=== PATIENT | male | born 1990 | race Caucasian/White ===

== ENCOUNTER 2018-08-04 11:05 | Inpatient (IN) | payer OTHER ==
[~2018-08-04] VITALS: Ht 182.9 cm; Wt 103.0 kg
[2018-08-04 11:42] VITALS: Ht 182.9 cm; Wt 103.0 kg
[2018-08-04 12:44] LABS: BASOPHIL % 0.3 % (0-2); PLATELET COUNT 339 x10^3mcL (130-400); RED CELL DISTRIBUTION WIDTH 12.9 % (11.5-14.5)
[2018-08-04 12:52] LABS: microscopic required? NO
[2018-08-04 12:57] LABS: UA SPECIFIC GRAVITY 1.025 (1.005-1.035); urine erythrocyte NEGATIVE (NEGATIVE)
[2018-08-04 13:13] LABS: CARBON DIOXIDE 30.9 mmol/L (21-32); CHLORIDE SERUM 98 mmol/L (98-107); CREATININE SERUM 0.9 mg/dL (0.7-1.3); GFR1 > 60 mL/min; GLUCOSE SERUM 109 mg/dL (74-106); POTASSIUM SERUM 3.7 mmol/L (3.5-5.1); SODIUM SERUM 137 mmol/L (136-145)
[2018-08-04 13:18] LABS: ALBUMIN 3.6 g/dL (3.4-5.0); ALKALINE PHOSPHATASE 83 U/L (46-116); ALT/SGPT 20 U/L (16-63); AST/SGOT 12 U/L (15-37)
[2018-08-04 13:19] LABS: TOTAL PROTEIN, SERUM 9.3 g/dL (6.4-8.2)
[2018-08-04 16:04] VITALS: BP 119/71
[2018-08-04 16:26] LABS: PHOSPHOROUS 4.1 mg/dL (2.5-4.9)
[2018-08-04 16:27] LABS: CHOLESTEROL/HDL RATIO 2.4
[2018-08-04 18:20] VITALS: BP 130/73
[2018-08-04 21:43] LABS: AMPHETAMINE QUAL UR NONE DETECTED (See below)
[2018-08-05 05:20] VITALS: BP 119/57
[2018-08-05 06:38] LABS: BASOPHIL % 0.1 % (0-2); PLATELET COUNT 277 x10^3mcL (130-400); RED CELL DISTRIBUTION WIDTH 13.8 % (11.5-14.5)
[2018-08-05 07:09] LABS: CALCIUM 8.8 mg/dL (8.5-10.1); CARBON DIOXIDE 28.6 mmol/L (21-32); CHLORIDE SERUM 100 mmol/L (98-107); CREATININE SERUM 0.8 mg/dL (0.7-1.3); GFR1 > 60 mL/min; GLUCOSE SERUM 107 mg/dL (74-106); POTASSIUM SERUM 3.7 mmol/L (3.5-5.1); SODIUM SERUM 136 mmol/L (136-145)
[2018-08-05 09:16] VITALS: BP 95/51
[2018-08-05 09:19] VITALS: BP 133/63
[2018-08-05 17:22] VITALS: BP 131/71
[2018-08-05 20:59] VITALS: BP 110/61
[2018-08-06 06:03] VITALS: BP 148/86
[2018-08-06 07:29] LABS: CARBON DIOXIDE 29.8 mmol/L (21-32); CHLORIDE SERUM 101 mmol/L (98-107); CREATININE SERUM 0.8 mg/dL (0.7-1.3); GFR1 > 60 mL/min; GLUCOSE SERUM 102 mg/dL (74-106); POTASSIUM SERUM 4.3 mmol/L (3.5-5.1); SODIUM SERUM 138 mmol/L (136-145)
[2018-08-06 07:51] LABS: BASOPHIL % 0.2 % (0-2); PLATELET COUNT 311 x10^3mcL (130-400); RED CELL DISTRIBUTION WIDTH 12.8 % (11.5-14.5)
[2018-08-06 09:00] VITALS: BP 104/63
[2018-08-06] MEDS ORDERED: LAC PO (11:14)
[2018-08-06] MEDS ORDERED: AUGMENTIN 875-1 EACH PO (11:17)
[2018-08-06 12:06] VITALS: BP 104/63
== END 2018-08-06 14:20 | disposition home or self-care (01) | DRG 301 ==
LOC: ED 11:05 → MU 15:08 → EDBEDREQ 15:08 → MU 15:32
PROVIDERS: Emergency Medicine; ADMIT Family Medicine
DX: I80.8 Phlebitis and thrombophlebitis of other sites (principal); K11.20 Sialoadenitis, unspecified; Z23 Encounter for immunization
CPT/HCPCS: 83880; 90658; J0295; J1885; J2543; J3490; J7030; Q0092; Q9967